=== PATIENT | female | born 2000 | race Caucasian/White ===

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

== ENCOUNTER 2022-05-31 14:57 | Emergency (ER) | payer OTHER ==
[2022-05-31 16:47] LABS: HEMOGLOBIN 12.3 gm/dl (12.3-15.3); RED BLOOD COUNT 4.88 M/UL (4.00-5.10); WHITE BLOOD COUNT 5.8 K/UL (4.5-11.0)
[2022-05-31 17:10] LABS: BUN/CREATININE RATIO 20 (0-10)
[2022-05-31] MEDS ORDERED: PROTONIX40 MG PO (19:46)
[2022-05-31] MEDS ORDERED: ZOFRAN ODT 4 MG4 MG GT (19:54)
== END 2022-05-31 20:10 | disposition home or self-care (01) ==
LOC: ER1 14:57
PROVIDERS: Family Medicine
DX: R10.13 Epigastric pain (principal); F17.200 Nicotine dependence, unspecified, uncomplicated; R11.2 Nausea with vomiting, unspecified
CPT/HCPCS: 80053; 81001; 83690; 84703; 85025; 96374; 96375; 99284; J1885; J2405; Q9967

== ENCOUNTER 2022-06-26 23:32 | Emergency (ER) | payer OTHER ==
[~2022-06-26 23:32] MED LIST changes: +AMOXICILLIN500 MG PO; +CLARITHROMYCIN500 MG PO; +ONDANSETRON ODT4 MG PO; +PROMETHAZINE12.5 M1 PO; +PROTONIX 40 MG40 M1 PO; +PROTONIX40 MG PO; +ZOFRAN ODT 4 MG4 MG GT
[2022-06-27 00:06] LABS: HEMOGLOBIN 13.3 gm/dl (12.3-15.3); RED BLOOD COUNT 5.15 M/UL (4.00-5.10)
[2022-06-27 00:19] LABS: BUN/CREATININE RATIO 21 (0-10)
[2022-06-27] MEDS ORDERED: PHENERGAN 12.12.5 MG PR (05:34)
[2022-06-27] MEDS ORDERED: BENTYL 20MG TAB20 MG PO (05:34)
[2022-06-27] MEDS ORDERED: ZOFRAN ODT 4 MG4 MG PO (05:34)
[2022-06-30 21:12] LABS: CHLAMYDIA TRACHOMATIS, NAA Negative (Negative); NEISSERIA GONORRHOEAE, NAA Negative (Negative)
== END 2022-06-27 06:30 | disposition home or self-care (01) ==
LOC: ER1 23:32
PROVIDERS: Emergency Medicine
DX: N39.0 Urinary tract infection, site not specified (principal); F17.210 Nicotine dependence, cigarettes, uncomplicated; Z20.822 Contact with and (suspected) exposure to COVID-19
CPT/HCPCS: 0240U; 80053; 81001; 82009; 83605; 83690; 84703; 85025; 87040; 87210; 96361; 96372; 96374; 96375; 96376; 99284; J0500; J0696; J0780; J1885; J2405; Q9967

== ENCOUNTER 2022-06-28 21:07 | Emergency (ER) | payer OTHER ==
[~2022-06-28 21:07] MED LIST changes: +BENTYL 20MG TAB20 MG PO; +PHENERGAN 12.12.5 MG PR; +ZOFRAN ODT 4 MG4 MG PO
[2022-06-28 21:29] LABS: HEMOGLOBIN 13.4 gm/dl (12.3-15.3); RED BLOOD COUNT 5.16 M/UL (4.00-5.10)
[2022-06-28 21:34] LABS: WHITE BLOOD COUNT 9.2 K/UL (4.5-11.0)
[2022-06-28 22:06] LABS: BUN/CREATININE RATIO 31 (0-10)
== END 2022-06-29 00:51 | disposition left against medical advice (07) ==
LOC: ER1 21:07
PROVIDERS: Student in an Organized Health Care Education/Training Program
DX: R10.9 Unspecified abdominal pain (principal); R11.10 Vomiting, unspecified; Z20.822 Contact with and (suspected) exposure to COVID-19
CPT/HCPCS: 0240U; 80053; 81001; 83690; 84703; 85025